=== PATIENT | female | born 1955 | race American Indian/Alaskan Native ===

== ENCOUNTER 2017-01-02 07:09 | Outpatient (CLI) | payer BC ==
--- NOTE | 2017-01-02 07:36 | Mammography Report ---
Bilateral mammogram: Compared to 01/02/16. CAD study utilized. Findings: Predominance adipose tissue bilaterally. Benign calcifications and benign density. Benign axillary nodes. No microcalcification. Impression: Benign findings. Annual followup recommended. BI-RADS CATEGORY: 2 = Benign ACR BI-RADS MAMMOGRAPHIC CODES: 0 = Needs additional imaging evaluation; 1 = Negative; 2 = Benign; 3 = Probably benign; 4 = Suspicious; 5 = Malignant; 6 = Known biopsy-proven malignancy COMMENT: 1. Dense breast tissue, i.e., adenosis, fibrocystic changes, etc., may obscure an underlying neoplasm. 2. Approximately 10% of cancers are not detected with mammography. 3. A negative mammography report should not delay biopsy if a clinically suspicious mass is present. COMMENT: Patient follow-up letters are generated in [employer].
== END 2017-01-02 07:10 | disposition home or self-care (01) ==
LOC: MAMMO 07:09
PROVIDERS: ATTEND Obstetrics & Gynecology
DX: Z12.31 Encounter for screening mammogram for malignant neoplasm of breast (principal)
CPT/HCPCS: 77067; G0202

== ENCOUNTER 2017-02-03 06:17 | Day surgery (SDC) | payer BC ==
[2017-02-03] MEDS ORDERED: TOBRADEX ONE (06:20)
[2017-02-03] MEDS ORDERED: BSS ONE (06:21)
[2017-02-03] MEDS ORDERED: DUOVISC VISCOELASTIC INTRAOCULA ONE ×2 (07:00→08:28)
--- NOTE | 2017-02-03 07:05 | Anesthesia Consultation ---
Anesthesia Consult and Med Hx Date of service: 02/03/17 - Airway Anesthetic Teeth Evaluation: Partials ROM Head & Neck: Adequate Mental/Hyoid Distance: Adequate Mallampati Class: Class II Intubation Access Assessment: Probably Good - Pulmonary Exam CTA: Yes - Cardiac Exam Cardiac Exam: RRR - Pre-Operative Health Status ASA Pre-Surgery Classification: ASA2 Proposed Anesthetic Plan: MAC - Pulmonary Hx Smoking: Yes (FOR 15 YEARS,QUIT IN 2009) Hx Sleep Apnea: Yes (RESOLVED WITH WEIGHT LOSS) - Cardiovascular System Hx Hypertension: Yes (13 YEARS) - Central Nervous System Hx Neuromuscular Disorder: Yes (DDD, Stenosis, spondylolisthesis) Hx Psychiatric Problems: No - Endocrine Hx Thyroid Disease: Yes Hx Hypothyroidism: Yes - Other Systems Hx Alcohol Use: No Hx Substance Use: No Hx Cancer: No
--- NOTE | 2017-02-03 07:06 | Anesthesia Day of Surgery ---
Anesthesia Day of Surgery - Day of Surgery Patient Examined: Yes Patient H&P Reviewed: Yes Patient is NPO: Yes Beta Blockers: Yes (0500 today)
[2017-02-03] MEDS: NEOFRIN OS SCH ×3 (07:30→07:40)
[2017-02-03] MEDS: VIGAMOX OS SCH ×3 (07:30→07:40)
[2017-02-03] MEDS: MYDRIACYL OS SCH ×3 (07:30→07:40)
[2017-02-03] MEDS: CYCLOGYL OS SCH ×3 (07:30→07:40)
[2017-02-03] MEDS ORDERED: SUBLIMAZE ONE (07:44)
[2017-02-03] MEDS ORDERED: VERSED ONE (07:46)
[2017-02-03] MEDS ORDERED: BSS OD ONE (08:25)
[2017-02-03] MEDS ORDERED: BSS PLUS IO ONE (08:26)
[2017-02-03] MEDS ORDERED: XYLOCAINE MPF 2% INFILTRATI ONE (08:27)
[2017-02-03] MEDS ORDERED: VISCOAT IO ONE (08:42)
[2017-02-03] MEDS ORDERED: WATER FOR IRRIG STERILE IR ONE (09:23)
[2017-02-03] MEDS ORDERED: TOBRADEX OD ONE (09:23)
[2017-02-03] MEDS ORDERED: TYLENOL PO ONE (10:30)
[2017-02-03] MEDS ORDERED: DIAMOX PO ONE (10:30)
[2017-02-03 10:31] VITALS: BP 114/51
--- NOTE | 2017-02-03 10:42 | Operative Report ---
PREOPERATIVE DIAGNOSIS: Cataract, right eye. PROCEDURE: Cataract extraction, anterior vitrectomy, right eye. ANESTHESIA: MAC. DESCRIPTION OF PROCEDURE: After informed consent was obtained, the patient was brought into the operating room, tetracaine eyedrops were placed in the eye. A temporal clear corneal incision was made using the keratome blade. Viscoat was instilled in the anterior chamber. A capsulorrhexis capsulotomy was performed using Utrata forceps and a cystotome needle. Hydrodissection was applied in 4 quadrants using BSS on a 30-gauge cannula. The nucleus was then emulsified and removed using the phacoemulsification handpiece. Following removal of the nucleus, it became apparent that there was a large posterior capsular rent with vitreous herniating through. Visibility was extremely poor due to previous RK incisions and anterior vitrectomy was performed. Then, an MA60 implant was attempted to be placed into the sulcus; however, following insertion of the MA60, it became apparent that the haptic was severed off and so the MA60 implant was then removed along with the severed haptic. At this point, there was some anterior chamber hemorrhage and poor visibility on the cornea. The wound was checked to be clear of vitreous. The decision was made to allow the blood and corneal swelling to resolve before attempted placement of a ciliary sulcus based implant could be done. The patient tolerated the procedure well and was sent back to the recovery room in stable condition. Prior to this, the eye was patched with TobraDex ointment. JOB# [id number] ALESHA/[place]
--- NOTE | 2017-02-03 11:41 | Discharge Summary ---
HOSPITAL COURSE: This is a 61-year-old black female who underwent cataract extraction in the right eye with an anterior vitrectomy. She tolerated the procedure well. She was sent back to the recovery room in stable condition. She is to see us in the morning, after which she will be sent to a retina specialist She is to use Pred Forte 4 times a day, Besivance 4 times a day and Prolensa once a day. JOB# [id number] ALESHA/[place]
== END 2017-02-03 10:20 | disposition home or self-care (01) ==
LOC: OR 06:17
PROVIDERS: ATTEND Specialist
DX: H26.9 Unspecified cataract (principal); K21.9 Gastro-esophageal reflux disease without esophagitis; I10 Essential (primary) hypertension; E11.9 Type 2 diabetes mellitus without complications; E03.9 Hypothyroidism, unspecified; M48.00 Spinal stenosis, site unspecified; Z90.89 Acquired absence of other organs; Z87.891 Personal history of nicotine dependence; Z79.899 Other long term (current) drug therapy; Z94.7 Corneal transplant status
CPT/HCPCS: 66850; 67005; 82962; J2250; J3010

== ENCOUNTER 2017-10-10 06:06 | Outpatient (CLI) | payer BC ==
[2017-10-10 11:08] LABS: Creatinine,Urine 21.4 mg/dL (0.1-20.0)
[2017-10-10 11:18] LABS: Alanine Aminotransferase 10 units/L (7-56); Albumin 3.8 g/dL (3.9-5); BUN/Creatinine Ratio 24; Blood Urea Nitrogen 17 mg/dL (7-17); Calcium 8.4 mg/dL (8.4-10.2); Chol/HDL Ratio 2.04 %; HDL Cholesterol 73 mg/dL (40-59); Hemolysis Index 5; LDL Cholesterol,Direct 79 mg/dL (50-130)
== END 2017-10-10 06:07 | disposition home or self-care (01) ==
LOC: LAB 06:06
PROVIDERS: ATTEND Family Medicine
DX: Z00.01 Encounter for general adult medical examination with abnormal findings (principal); R79.89 Other specified abnormal findings of blood chemistry; E78.00 Pure hypercholesterolemia, unspecified; I10 Essential (primary) hypertension; E03.9 Hypothyroidism, unspecified; K21.9 Gastro-esophageal reflux disease without esophagitis; M19.90 Unspecified osteoarthritis, unspecified site; Z88.6 Allergy status to analgesic agent; Z87.891 Personal history of nicotine dependence
CPT/HCPCS: 36415; 80053; 80061; 82043; 82570; 83036

== ENCOUNTER 2018-04-13 06:52 | Outpatient (CLI) | payer BC ==
[2018-04-13 15:50] LABS: Creatinine,Urine 127.9 mg/dL (0.1-20.0)
[2018-04-13 15:51] LABS: Microalbumin/Creatinine Ratio 9.3 ug/mg
== END 2018-04-13 06:53 | disposition home or self-care (01) ==
LOC: LAB 06:52
PROVIDERS: ATTEND Family Medicine
DX: E11.42 Type 2 diabetes mellitus with diabetic polyneuropathy (principal); I10 Essential (primary) hypertension; E89.0 Postprocedural hypothyroidism
CPT/HCPCS: 36415; 82043; 83036; 84443

== ENCOUNTER 2018-08-11 10:17 | Outpatient (CLI) | payer BC | END 2018-08-11 10:18 | disposition home or self-care (01) | LOC: LAB 10:17 | PROVIDERS: ATTEND Family Medicine | DX: E89.0 Postprocedural hypothyroidism (principal); I10 Essential (primary) hypertension; E78.00 Pure hypercholesterolemia, unspecified; K21.9 Gastro-esophageal reflux disease without esophagitis; E03.9 Hypothyroidism, unspecified; Z87.891 Personal history of nicotine dependence | CPT/HCPCS: 36415; 84443 ==

== ENCOUNTER 2018-08-18 06:52 | Outpatient (CLI) | payer BC ==
--- NOTE | 2018-08-18 09:22 | Cat Scan Report ---
Limited CT scan of chest without contrast: Study performed for calcium score. Findings: No mediastinal mass or adenopathy. Limited study reveals normal lung parenchyma. No consolidation or mass. Impression: No acute lung changes.
--- NOTE | 2018-08-18 12:04 | Ultrasound Report ---
PROCEDURE: US AORTA SCAN (AAA). TECHNIQUE: Ultrasound of the abdominal aorta. Duplex Doppler evaluation performed of aorta, mesenter ic and renal arteries. HISTORY: r42 DIZZINESS/I10 MILD HTN/R06.00 DYSPNEA/E11.9 PALPITATIONS COMPARISON: None FINDINGS: The proximal, mid and distal aortic diameters are 2.1, 1.9 and 1.8 cm respectively. There is no abdom inal aortic aneurysm. Bifurcation and visualized common iliac arteries are normal caliber. Celiac and SMA origins, renal arteries are patent. Mesenteric and renal arterial flow velocities are acceptable. IMPRESSION: No abdominal aortic aneurysm. No stenosis or aneurysm involving branch arteries. This document is electronically signed by Isela Olivas MD., August 18 2018 12:02:21 PM ET
== END 2018-08-18 06:53 | disposition home or self-care (01) ==
LOC: VAS 06:52 → EDSTATUS 08:30
PROVIDERS: ATTEND Internal Medicine
DX: R42 Dizziness and giddiness (principal); I10 Essential (primary) hypertension; R06.00 Dyspnea, unspecified; E11.9 Type 2 diabetes mellitus without complications; R00.2 Palpitations; E78.00 Pure hypercholesterolemia, unspecified; K21.9 Gastro-esophageal reflux disease without esophagitis; E03.9 Hypothyroidism, unspecified; Z87.891 Personal history of nicotine dependence; V81 Occupant of railway train or railway vehicle injured in transport accident
CPT/HCPCS: 75571; 76775

== ENCOUNTER 2018-08-23 07:58 | Outpatient (CLI) | payer BC ==
--- NOTE | 2018-08-27 10:19 | Treadmill Report ---
MYOCARDIAL PERFUSION IMAGING NUCLEAR REPORT INDICATION FOR PROCEDURE: Nuclear myocardial perfusion imaging with gated study was performed. One-day protocol was performed with resting images followed by stress images using technetium-pyrophosphate sestamibi. Post-stress gated study was performed. Nuclear images were reviewed and this showed normal perfusion during post-stress and during rest. Normal left ventricular size was noted with normal left ventricular systolic motion. Ejection fraction was calculated to be 66% post-stress. Transient ischemic dilation was found to be 0.92. FINAL IMPRESSION: 1. Normal perfusion noted. 2. Normal left ventricular systolic function with calculated ejection fraction of 66% noted. 3. This was found to be low risk study. [facility]# [id number] JIM/[place]
== END 2018-08-23 07:59 | disposition home or self-care (01) ==
LOC: CARD 07:58
PROVIDERS: ATTEND Internal Medicine
DX: R06.00 Dyspnea, unspecified (principal); R00.2 Palpitations; E11.9 Type 2 diabetes mellitus without complications; I10 Essential (primary) hypertension; R42 Dizziness and giddiness; K22.2 Esophageal obstruction; E03.9 Hypothyroidism, unspecified; E78.00 Pure hypercholesterolemia, unspecified; K21.9 Gastro-esophageal reflux disease without esophagitis; Z87.891 Personal history of nicotine dependence
CPT/HCPCS: 78452; 93017; A9502

== ENCOUNTER 2018-08-24 06:06 | Outpatient (CLI) | payer BC | END 2018-08-24 06:07 | disposition home or self-care (01) | LOC: ECHO 06:06 | PROVIDERS: ATTEND Internal Medicine | DX: I08.2 Rheumatic disorders of both aortic and tricuspid valves (principal); E11.9 Type 2 diabetes mellitus without complications; I10 Essential (primary) hypertension; E78.00 Pure hypercholesterolemia, unspecified; K21.9 Gastro-esophageal reflux disease without esophagitis; E03.9 Hypothyroidism, unspecified | CPT/HCPCS: 93306 ==

== ENCOUNTER 2018-11-05 07:34 | Outpatient (CLI) | payer BC ==
[2018-11-05 10:40] LABS: Alanine Aminotransferase 14 units/L (7-56); BUN/Creatinine Ratio 13; Blood Urea Nitrogen 10 mg/dL (7-17); Hemolysis Index 10; LDL Cholesterol,Direct 65 mg/dL (50-130)
[2018-11-05 11:27] LABS: Chol/HDL Ratio 1.88 %; HDL Cholesterol 69 mg/dL (40-59)
== END 2018-11-05 07:35 | disposition home or self-care (01) ==
LOC: LAB 07:34
PROVIDERS: ATTEND Internal Medicine
DX: E11.9 Type 2 diabetes mellitus without complications (principal); I06.9 Rheumatic aortic valve disease, unspecified; E78.00 Pure hypercholesterolemia, unspecified; K21.9 Gastro-esophageal reflux disease without esophagitis; E03.9 Hypothyroidism, unspecified
CPT/HCPCS: 36415; 80053; 80061; 84439; 84443

== ENCOUNTER 2019-01-12 07:42 | Outpatient (CLI) | payer BC ==
[2019-01-12 10:10] LABS: Alanine Aminotransferase 12 units/L (7-56); Albumin 4.2 g/dL (3.9-5); BUN/Creatinine Ratio 19; Blood Urea Nitrogen 13 mg/dL (7-17); Calcium 8.7 mg/dL (8.4-10.2); Chol/HDL Ratio 2.03 %; HDL Cholesterol 65 mg/dL (40-59); Hemolysis Index 2; LDL Cholesterol,Direct 66 mg/dL (50-130)
== END 2019-01-12 07:43 | disposition home or self-care (01) ==
LOC: LAB 07:42
PROVIDERS: ATTEND Internal Medicine
DX: E78.00 Pure hypercholesterolemia, unspecified (principal); K21.9 Gastro-esophageal reflux disease without esophagitis; E03.9 Hypothyroidism, unspecified; M19.90 Unspecified osteoarthritis, unspecified site; Z87.891 Personal history of nicotine dependence
CPT/HCPCS: 36415; 80053; 80061

== ENCOUNTER 2019-01-21 06:57 | Outpatient (CLI) | payer BC ==
--- NOTE | 2019-01-21 14:14 | Vascular Lab Report ---
BILATERAL CAROTID DOPPLER ULTRASOUND INDICATION : R42.DIZZINESS/E11.9DIABETES/R06.00DYSPNEA/K22.2ESOPHAGEAL STRICTU TECHNIQUE: Grayscale and color Doppler imaging performed through the neck. COMPARISON: None FINDINGS: Right: There is no significant atherosclerotic disease. Peak systolic velocity in the CCA is 75 cm/ s with end-diastolic velocity of 28 cm/s. Peak systolic velocity in the proximal ICA is 84 cm/s with end-diastolic velocity of 30 cm/s. ICA to CCA ratio is less than 2. There is antegrade flow in the E CA and the vertebral artery. Left: There is no significant atherosclerotic disease. Peak systolic velocity in the CCA is 69 cm/s w ith end-diastolic velocity of 15 cm/s. Peak systolic velocity in the proximal ICA is 106 cm/s with en d-diastolic velocity of 32 cm/s. ICA to CCA ratio is less than 2. There is antegrade flow in the ECA and the vertebral artery. IMPRESSION: No hemodynamically significant stenosis by NASCET criteria. There is less than 50% lumina l narrowing throughout both carotid systems by Doppler velocities. Signer Name: Tha Garrison Jr, MD Signed: 01/21/2019 2:10 PM Workstation Name: [id number]
== END 2019-01-21 06:58 | disposition home or self-care (01) ==
LOC: VAS 06:57
PROVIDERS: ATTEND Internal Medicine
DX: I65.23 Occlusion and stenosis of bilateral carotid arteries (principal); K22.2 Esophageal obstruction; I10 Essential (primary) hypertension; E11.9 Type 2 diabetes mellitus without complications; Z87.891 Personal history of nicotine dependence
CPT/HCPCS: 93880

== ENCOUNTER 2019-01-28 05:58 | Outpatient (CLI) | payer BC ==
--- NOTE | 2019-01-31 12:48 | Mammography Report ---
DIGITAL SCREENING MAMMOGRAM WITH CAD, 01/28/2019 INDICATION: Routine screening mammography. TECHNIQUE: Digital bilateral 2D mammography was obtained in the craniocaudal and mediolateral obliq ue projections. This examination was interpreted with the benefit of Computer-Aided Detection analysi s. COMPARISON: 01/22/2018 and mammograms going back to 2010 FINDINGS: Breast Density: There are scattered areas of fibroglandular density. A right focal asymmetry requires additional imaging. No architectural distortion or suspicious calcif ications. There is no evidence of dominant mass, suspicious calcifications or architectural distortio n in the left breast. IMPRESSION: Right asymmetry requiring additional imaging. Recommend recall for right lateral and righ t MLO and CC spot magnification views and right breast ultrasound if needed. Follow up recommendation: Special View: Mag Category 0: Incomplete. Needs additional imaging evaluation and/or prior mammograms for comparison. A "normal" or negative report should not discourage follow up or biopsy of a clinically significant f inding. A written summary of these findings will be mailed to the patient. The patient will be entered into a mammography reporting system which will generate a reminder letter for the patient's next appointmen t at the appropriate interval. The [employer] recommends yearly mammograms starting at age 40 and continuing as l sebastián as a woman is in good health. Breast MRI is recommended for women with an approximate 20-25% or greater lifetime risk of breast cancer, including women with a strong family history of breast or ova krystyna cancer or who have been treated for Hodgkin's disease. Signer Name: Ryan Augustin MD Signed: 01/31/2019 12:44 PM Workstation Name: [id number]
== END 2019-01-28 05:59 | disposition home or self-care (01) ==
LOC: MAMMO 05:58
PROVIDERS: ATTEND Obstetrics & Gynecology
DX: Z12.31 Encounter for screening mammogram for malignant neoplasm of breast (principal); Z88.5 Allergy status to narcotic agent
CPT/HCPCS: 77067

== ENCOUNTER 2019-02-15 07:02 | Outpatient (CLI) | payer BC ==
--- NOTE | 2019-02-15 11:41 | Mammography Report ---
RIGHT DIGITAL DIAGNOSTIC MAMMOGRAM WITH CAD 02/15/2019 RIGHT LIMITED BREAST ULTRASOUND INDICATION: Recall to evaluate asymmetry. ABN MAMMO TECHNIQUE: Digital right mammographic imaging was performed. Magnification views were obtained. This examination was interpreted with the benefit of Computer-Aided Detection (CAD) analysis. COMPARISON: 01/28/2019 FINDINGS: Breast Density: The breasts are almost entirely fatty. MAMMOGRAPHIC FINDINGS: Lateral and spot magnification MLO and CC views were performed and are negativ e. Satisfactory effacement of asymmetry on the spot images. ULTRASOUND FINDINGS: Targeted ultrasound evaluation was performed of the area of interest. Ultrasou nd of the upper right breast was performed and demonstrated normal structures with no mass or suspici ous shadowing. IMPRESSION: Negative mammogram and negative targeted right breast ultrasound. The mammographic asymme try appears to be an island of normal fibroglandular structures which disappear with spot compression . Follow up recommendation: Routine yearly BI-RADS Category 1: Negative. A "normal" or negative report should not discourage follow up or biopsy of a clinically significant f inding. A written summary of these findings will be mailed to the patient. The patient will be entered into a mammography reporting system which will generate a reminder letter for the patient's next appointmen t at the appropriate interval. According to the [employer], yearly mammograms are recommended starting at age 40 and continuing as long as a woman is in good health. Breast MRI is recommended for women with an arin roximately 20-25% or greater lifetime risk of breast cancer, including women with a strong family his tory of breast or ovarian cancer and women who have been treated for Hodgkin's disease. Signer Name: Ryan Augustin MD Signed: 02/15/2019 11:37 AM Workstation Name: [id number]
== END 2019-02-15 07:03 | disposition home or self-care (01) ==
LOC: MAMMO 07:02
PROVIDERS: ATTEND Obstetrics & Gynecology
DX: R92.8 Other abnormal and inconclusive findings on diagnostic imaging of breast (principal)

== ENCOUNTER 2019-04-01 11:07 | Outpatient (CLI) | payer BC ==
[2019-04-01 11:46] LABS: Microalbumin/Creatinine Ratio 30.7 ug/mg
[2019-04-01 11:51] LABS: Alanine Aminotransferase 9 units/L (7-56); BUN/Creatinine Ratio 14; Blood Urea Nitrogen 10 mg/dL (7-17); Calcium 8.7 mg/dL (8.4-10.2); Hemolysis Index 4; LDL Cholesterol,Direct 58 mg/dL (50-130)
[2019-04-01 12:34] LABS: Chol/HDL Ratio 2.14 %; HDL Cholesterol 56 mg/dL (40-59)
== END 2019-04-01 11:08 | disposition home or self-care (01) ==
LOC: LAB 11:07
PROVIDERS: ATTEND Family Medicine
DX: E11.42 Type 2 diabetes mellitus with diabetic polyneuropathy (principal); E78.2 Mixed hyperlipidemia; I10 Essential (primary) hypertension; E89.0 Postprocedural hypothyroidism
CPT/HCPCS: 36415; 80048; 80061; 82043; 84443; 84450; 84460

== ENCOUNTER 2019-07-28 08:00 | Inpatient (IN) | payer BC ==
[2019-07-25 10:28] LABS: Basophils # (Auto) 0.1 K/mm3 (0.0-0.1); Basophils % (Auto) 1.2 % (0.0-1.8); Eosinophils # (Auto) 0.1 K/mm3 (0.0-0.4); Eosinophils % (Auto) 1.2 % (0.0-4.3); Hematocrit 41.3 % (30.3-42.9); Lymphocytes # (Auto) 1.5 K/mm3 (1.2-5.4); Lymphocytes % (Auto) 30.5 % (13.4-35.0); Mean Corpuscular HGB Conc 34 % (30-34); Mean Corpuscular Volume 80 fl (79-97); Monocytes # (Auto) 0.3 K/mm3 (0.0-0.8); Monocytes % (Auto) 5.2 % (0.0-7.3); Platelet Count 292 K/mm3 (140-440); Red Blood Count 5.19 M/mm3 (3.65-5.03); Red Cell Distribution Width 15.3 % (13.2-15.2)
--- NOTE | 2019-07-25 10:37 | Anesthesia Consultation ---
Anesthesia Consult and Med Hx Date of service: 07/25/19 - Airway Anesthetic Teeth Evaluation: Caps, Partials (lower) ROM Head & Neck: Adequate Mental/Hyoid Distance: Adequate Mallampati Class: Class III Intubation Access Assessment: Possibly Difficult - Pulmonary Exam CTA: Yes - Cardiac Exam Cardiac Exam: RRR - Pre-Operative Health Status ASA Pre-Surgery Classification: ASA2 Proposed Anesthetic Plan: General Nerve Block: TAP - Pulmonary Hx Smoking: Yes (former) Hx Respiratory Symptoms: No Hx Sleep Apnea: Yes (no CPAP) - Cardiovascular System Hx Hypertension: Yes Hx Heart Attack/AMI: No Hx Percutaneous Transluminal Coronary Angioplasty (PTCA): No Hx Cardia Arrhythmia: Yes (hx brief run SVT on holter monitor; none on most recent 01/2019) Hx Pacemaker: No Hx Internal Defibrillator: No - Central Nervous System CVA: No Hx Back Pain: Yes - Gastrointestinal Hx Gastroesophageal Reflux Disease: Yes (w/ esophageal stricture) - Endocrine Hx Renal Disease: No Hx Liver Disease: No Hx Non-Insulin Dependent Diabetes: Yes Hx Hypothyroidism: Yes - Hematic Hx Anemia: No - Other Systems Hx Obesity: No - Additional Comments Anesthesia Medical History Comments: TTE 08/2018: normal EF, no significant valve abnormalities. Nuc perf study 08/2018: normal. EKG 06/2019: NSR. No hx anesthetic complications.
[2019-07-25 10:43] LABS: BUN/Creatinine Ratio 17; Blood Urea Nitrogen 12 mg/dL (7-17); Calcium 9.2 mg/dL (8.4-10.2); Hemolysis Index 9
--- NOTE | 2019-07-26 17:04 | History and Physical Report ---
History of Present Illness Date of examination: 07/22/19 Chief complaint: Recurret LISA 3 History of present illness: Past History : 4 Term Births: 5 Living Children: 5 Para: 5 # 1 Comments: [id number] RESIDENT DOCTOR History Operations: esophageal dilation (2015) partial thyroidectomy (1991) LEEP 2013 Right eye (01/2017) with complications Left eye (2017) Colon polypectomy with each colonoscopy Abnormal PAP: positive Infection History HIV Risk Eval: no Hx of STD: HSV Active Medications (reviewed today): COQ-10 CAPSULE (COENZYME Q10 CAPS) METFORMIN HCL ER 500 MG ORAL TABLET EXTENDED RELEASE 24 HOUR (METFORMIN HCL) LOSARTAN POTASSIUM-HCTZ 100-25 MG ORAL TABLET (LOSARTAN POTASSIUM-HCTZ) HYDRALAZINE HCL 50 MG ORAL TABLET (HYDRALAZINE HCL) ATORVASTATIN CALCIUM 40 MG ORAL TABLET (ATORVASTATIN CALCIUM) ASPIR-81 81 MG ORAL TABLET DELAYED RELEASE (ASPIRIN) ATENOLOL 25 MG ORAL TABLET (ATENOLOL) LEVOTHYROXINE SODIUM 112 MCG ORAL TABLET (LEVOTHYROXINE SODIUM) Current Allergies (reviewed today): CODEINE (Critical) Past Medical History: Reviewed history from 01/20/2019 and no changes required: G E R D Hyperlipidemia Hypertension Hypothyroidism esophageal stricture herniated discs: lumbar/sacral carpal tunnel syndrome Colon polyps LISA 2-3 (2013) Past Surgical History: Reviewed history from 01/20/2019 and no changes required: esophageal dilation (2015) partial thyroidectomy (1991) LEEP 2013 Right eye (01/2017) with complications Left eye (2017) Colon polypectomy with each colonoscopy Family History Summary: Reviewed history Last on 01/20/2019 and no changes required:07/26/2019 Aunt - Has Family History Breast Cancer - paternal - Entered On: 12/15/2017 Other Family Member - Has No Family History of Uterine Cancer - Entered On: 12/15/2017 Other Family Member - Has No Family History of Small Bowel Cancer - Entered On: 12/15/2017 Other Family Member - Has No Family History of Stomach Cancer - Entered On: 12/15/2017 Other Family Member - Has No Family History of Pancreatic Cancer - Entered On: 12/15/2017 Other Family Member - Has No Family History of Ovarvian Cancer - Entered On: 12/15/2017 Other Family Member - Has No Family History of Kidney/Urinary Tract Cancer - Entered On: 12/15/2017 Other Family Member - Has No Family History of Spontaneous DVT-PE - Entered On: 12/15/2017 Other Family Member - Has No Family History of Brain Cancer - Entered On: 12/15/2017 Other Family Member - Has No Family History of Biliary Tract Cancer - Entered On: 12/15/2017 Uncle - Has Family History of Lung Cancer - Maternal - Entered On: 07/10/2016 Aunt - Has Family History of Colon Cancer - maternal - Entered On: 11/22/2014 PGM - Has Family History Breast Cancer - dx'd age 50's - Entered On: 11/22/2014 General Comments - FH: Family History Breast Cancer paternal aunt Age 45 Mother head/neck cancer No Family History of Ovarvian Cancer No Family History of DVT/PE on OCP Social History: Reviewed history from 12/16/2017 and no changes required: Patient is single Smoking History: Patient currently smokes every day. Patient has been counseled to quit. Risk Factors: Smoked Tobacco Use: Current every day smoker Smokeless Tobacco Use: Never Passive smoke exposure: no Drug use: no HIV high-risk behavior: no Alcohol use: yes Exercise: yes Seatbelt use: 100 % Mammogram History: Date of Last Mammogram: 02/15/2019 PAP Smear History: Date of Last PAP Smear: 01/20/2019 Previous Tobacco Use: Signed On - 01/20/2019 Smoked Tobacco Use: Current every day smoker Cigarettes: Yes Year started: 2009 Smokeless Tobacco Use: Never Counseled to quit/cut down: yes Passive smoke exposure: no Drug use: no HIV high-risk behavior: no Caffeine use: 3 drinks per day Previous Alcohol Use: Signed On - 01/20/2019 Alcohol use: yes Type: occ Drinks per day: social Exercise: yes Times per week: 4 Seatbelt use: 100 % Colonoscopy History: Date of Last Colonoscopy: 03/04/2016 Mammogram History: Date of Last Mammogram: 02/15/2019 PAP Smear History: Date of Last PAP Smear: 01/20/2019 Review of Systems General Denies fever, chills, sweats, anorexia, fatigue, weakness, malaise, weight loss and sleep disorder. Denies vaginal discharge, incontinence, dysuria, hematuria, urinary frequency, amenorrhea, menorrhagia, abnormal vaginal bleeding, pelvic pain, genital sores, decreased libido, painful periods, painful sex, urinary urgency, hot flashes, vaginal dryness, vaginal itching and vaginal odor. CV Denies chest pains, palpitations, syncope, dyspnea on exertion, orthopnea, PND and peripheral edema. Resp Denies cough, dyspnea at rest, excessive sputum, hemoptysis, wheezing and pleurisy. GI Denies nausea, vomiting, diarrhea, constipation, change in bowel habits, abdominal pain, melena, hematochezia, jaundice, gas/bloating, indigestion/heartburn, dysphagia and odynophagia. Endo Denies cold intolerance, heat intolerance, polydipsia, polyphagia, polyuria and unusual weight change. Breast Denies left breast lump, right breast lump, nipple discharge, bloody discharge from nipple, breast pain, abnormal mammogram and breast enlargement. MS Denies back pain, joint pain, joint swelling, muscle cramps, muscle weakness, stiffness, arthritis, sciatica, restless legs, leg pain at night and leg pain with exertion. Derm Denies rash, itching, dryness and suspicious lesions. Neuro Denies paralysis, paresthesias, headache, seizures, tremors, vertigo, transient blindness, frequent falls, frequent headaches and difficulty walking. Psych Denies depression, anxiety, irritability and mood swings. Eyes Denies blurring, diplopia, irritation, discharge, vision loss, eye pain and photophobia. ENT Denies earache, ear discharge, tinnitus, decreased hearing, nasal congestion, nosebleeds, sore throat and hoarseness. Allergy Denies urticaria, allergic rash, hay fever and recurrent infections. Heme Denies abnormal bruising, bleeding and enlarged lymph nodes. 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 Discussed with patient various medical, surgical and radiological therapies common for treatment including, but not rincon ited to, hysterectomy and contninued consertive management with colposcopy and LEEP. She declines a second opinion with a gynecologic oncologist. Discussed risks and benefits of laparotomy, laparoscopy, vaginal and robotic assisted approaches for hysterectomies. Patient desires definitive treatment in the form of robot assisted laparoscopic total hysterectomy. The risks and alternatives for this surgery were reviewed with the patient. She was informed of the risks of the surgery including, but not limited to, pain, infection, bleeding possibly heavy enough to require a blood transfusion with associated risks of infections (hepatitis and HIV) and transfusion reactions, possible damage to bowel, bladder or ureter(s). Patient understands that this surgery with make her sterile. Indications to abort a robotic/laparoscopic procedure and perform an open procedure were explained. Patient advised the small risks of spreading of malignancy if morcellation is required during the surgery patient understands and approves performing if necessary. Questions answered. Consent reviewed and signed The patient was instructed/informed the following: The normal length of hospital stay for this procedure. Nothing to eat or drink after midnight the evening prior to surgery. Clear liquids the day before surgery. Pre-op instruction sheets given. Wound care instructions given. She desires to proceed with COVID-19 testing. She was instructed to stay home with limited visitors after testing. Medications Added to Medication List This Visit: 1) Coq-10 Capsule (Coenzyme q10 caps) 2) Metformin Hcl Er 500 Mg Oral Tablet Extended Release 24 Hour (Metformin hcl) 3) Hydralazine Hcl 50 Mg Oral Tablet (Hydralazine hcl) 4) Atorvastatin Calcium 40 Mg Oral Tablet (Atorvastatin calcium) 5) Levothyroxine Sodium 112 Mcg Oral Tablet (Levothyroxine sodium) Patient Instructions: 1) Stop ASA and COQ immediately Medications and Allergies Allergies Allergy/AdvReac Type Severity Reaction Status Date / Time codeine AdvReac Intermediate HIVES,NAUSE Verified 07/20/19 14:06 A,ITCHING Home Medications Medication Instructions Recorded Confirmed Last Taken Type Aspirin [Baby Aspirin] 1 tab PO DAILY 07/11/13 07/25/19 02/03/17 04:00 History Levothyroxine [Synthroid] 112 mcg PO DAILY 07/11/13 07/25/19 02/03/17 04:00 History atenoloL [Tenormin] 1 tab PO BID 07/11/13 07/25/19 02/03/17 04:00 History hydrALAZINE [Apresoline TAB] 2 tab PO TID 07/11/13 07/25/19 02/02/17 04:00 History AtorvaSTATin [Lipitor] 40 mg PO QHS 02/02/17 07/25/19 02/02/17 History Losartan/Hydrochlorothiazide 1 tab PO DAILY 02/02/17 07/25/19 02/02/17 History [Losartan-Hctz 100-25 mg Tab] Metformin HCl 500 mg PO DAILY 02/02/17 07/25/19 02/02/17 History Ubidecarenone [Coq-10] 400 mg PO DAILY 07/25/19 07/25/19 Unknown History Active Meds: Active Medications Celecoxib (Celebrex) 200 mg PO PREOP NR Stop: 07/28/19 18:00 Fentanyl (Sublimaze) 100 mcg IV ONCE PRN PRN Reason: sedation for nerve block Stop: 07/28/19 20:00 Gabapentin (Gabapentin) 600 mg PO PREOP NR Stop: 07/28/19 18:00 Lactated Ringer's (Lactated Ringers) 1,000 mls @ 100 mls/hr IV DIRECT RADHA Stop: 07/28/19 23:59 Cefazolin Sodium (Ancef/Sterile Water 2 Gm/20 Ml) 2 gm in 20 mls @ 80 mls/hr IV PREOP NR; Protocol Magnesium Oxide (Mag-Ox) 400 mg PO PREOP RADHA Stop: 07/28/19 18:00 Midazolam HCl (Versed) 2 mg IV PREOP NR Stop: 07/28/19 23:00 Exam Vital Signs Temp Pulse Resp BP Pulse Ox 98.8 F 70 20 126/72 98 07/25/19 10:00 07/25/19 10:00 07/25/19 10:00 07/25/19 10:00 07/25/19 10:00 Results - Labs 07/25/19 10:05 07/25/19 09:30 Assessment and Plan - Patient Problems (1) 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
--- NOTE | 2019-07-28 07:35 | Anesthesia Day of Surgery ---
Anesthesia Day of Surgery - Day of Surgery Patient Examined: Yes Patient H&P Reviewed: Yes Patient is NPO: Yes
[~2019-07-28 08:00] MED LIST: BUPIVACAINE-EPINEPHRINE/PF 0.25%-1:200,000 (30 ML) VIAL INFILTRATI ONE; CALCIUM CHLORIDE 1,000 MG/10 ML SYRINGE IV ONE; CELECOXIB 200 MG CAP PO NR; GABAPENTIN 300 MG CAP PO NR; HYDROmorphone 1 MG/1 ML INJ IV PRN; LACTATED RINGERS 1,000 ML IV SCH; LIDOCAINE MPF (2%) 20 MG/1 ML VIAL 5 ML ONE; MAGNESIUM OXIDE 400 MG TAB PO SCH; MIDAZOLAM 2 MG/2 ML INJ IV NR; MIDAZOLAM 2 MG/2 ML INJ ONE; NEOMY 40 MG/POLYMYXIN B 200,000 UNITS/ML (GU) AMPULE IR ONE; ROCURONIUM 50 MG/5 ML INJ IV ONE; THROMBIN (RECOMBINANT) 5,000 UNIT VIAL TP ONE; ceFAZolin/Water 2 GM/20 ML 2 GM/20 ML SYRINGE IV NR; dexAMETHasone 4 MG/ML VIAL ONE; fentaNYL 100 MCG/2 ML INJ IV PRN; fentaNYL 100 MCG/2 ML INJ ONE; propofoL 200 MG/20 ML VIAL IV ONE
[2019-07-28] MEDS ORDERED: PHENYLEPHRINE/NS 1,000 MCG/10 ML SYRINGE (OR USE) IV ONE (08:01)
[2019-07-28] MEDS ORDERED: ONDANSETRON 4 MG/2 ML INJ ONE (08:05)
[2019-07-28] MEDS ORDERED: dexAMETHasone 20 MG/5 ML VIAL ONE (08:05)
[2019-07-28] MEDS ORDERED: NEOMY 40 MG/POLYMYXIN B 200,000 UNITS/ML (GU) AMPULE IR ONE (08:38)
[2019-07-28] MEDS ORDERED: SODIUM CHLORIDE 0.9% IRRIG SOLN 2000 ML IR ONE (08:39)
[2019-07-28] MEDS ORDERED: KETOROLAC 30 MG/1 ML INJ ONE (08:58)
[2019-07-28] MEDS ORDERED: GLYCOPYRROLATE 0.4 MG/2 ML INJ ONE (08:58)
[2019-07-28] MEDS ORDERED: NEOSTIGMINE 10MG/10 ML INJ MDV ONE (08:58)
[2019-07-28] MEDS ORDERED: LACTATED RINGERS 1,000 ML ONE (09:14)
--- NOTE | 2019-07-28 09:56 | Post Operative Note ---
Pre-op diagnosis: LISA 3 Post-op diagnosis: same Findings: Grossly normal Uterus, tubes, ovaries and appendix Procedure: RALTH with BSO Anesthesia: GETA Surgeon: PAPA [facility]SI[facility] (Asst: Elif Hendricks) Estimated blood loss: minimal Pathology: list (uterus,cervix, tubes and ovaries) Specimen disposition: to lab Condition: stable Disposition: PACU
[2019-07-28] MEDS ORDERED: HYDROCHLOROTHIAZIDE PO SCH (11:00)
[2019-07-28] MEDS ORDERED: LOSARTAN PO SCH (11:00)
[2019-07-28] MEDS ORDERED: MORPHINE 2 MG/1 ML INJ IV PRN (11:00)
[2019-07-28] MEDS ORDERED: atenoloL 25 MG TAB PO SCH (11:00)
[2019-07-28] MEDS ORDERED: DEXTROSE 50% IN WATER (25GM) 50 ML SYRINGE IV PRN (11:00)
[2019-07-28] MEDS ORDERED: MORPHINE 4 MG/1 ML INJ IV PRN (11:00)
[2019-07-28] MEDS: INSULIN REGULAR, HUMAN 100 UNITS/1 ML SUB-Q SCH ×2 (12:06→17:31)
[2019-07-28] MEDS ORDERED: FAMOTIDINE 20 MG/2 ML INJ IV ONE (12:11)
[2019-07-28] MEDS: FAMOTIDINE 20 MG/2 ML INJ IV SCH ×2 (12:13→22:05)
[2019-07-28] MEDS: SODIUM CHLORIDE 0.9% 1000 ML 1,000 ML IV SCH ×2 (12:20→15:08)
[2019-07-28] MEDS: LOSARTAN 50 MG TAB PO SCH (13:13)
[2019-07-28] MEDS: hydroCHLOROthiazide 25 MG TAB PO SCH (13:14)
[2019-07-28] MEDS: ACETAMINOPHEN 325 MG TAB PO SCH ×2 (13:17→21:58)
[2019-07-28] MEDS ORDERED: ACETAMINOPHEN 325 MG TAB ONE (13:18)
--- NOTE | 2019-07-28 14:06 | Operative Report ---
Operative Report Operative Report: Date: 07/28/2019 Preoperative diagnosis: 1. Recurrent cervical intraepithelial neoplasia III 2. Body mass index of 29 kg/m Postoperative diagnosis: 1. Recurrent cervical intraepithelial neoplasia III 2. Body mass index of 29 kg/m Procedure: 1. Robotic-assisted laparoscopic total hysterectomy with bilateral salpingo-oophorectomy Surgeon: Margaret Montgomery MD Sas Sql Developer: Elif Hendricks Anesthesiologist: Dr. Kathia Rocha Anesthesia: General endotracheal anesthesia EBL: Approximately minimal Findings: EUA: Uterus palpated to approximately 8 weeks. Uterus was sounded to 7 cm. Grossly normal tubes and ovaries. Procedure: Patient was taken to the OR and placed in the supine position. General anesthesia was induced and an oral gastric tube was placed. Her neck and head were placed on foam support. Foam eye protection with goggles were secured in place. Then foam face protection was placed and secured. Foam shoulder pads were then positioned on her shoulders for Trendelenburg positioning. She was then placed in dorsolithotomy position. Exam under anesthesia as above. The abdomen and vagina were then prepped and draped in the usual sterile fashion. Timeout was performed. A Singh catheter was inserted into the bladder with drainage of clear yellow urine. The operative speculum was introduced into the vagina and the anterior lip of the cervix was grasped with single-toothed tenaculum. The uterus was sounded to 7 cm. The cervix was progressively dilated to allow the large V care uterine manipulator. The bulb of the manipulator was inflated and the speculum and tenaculum were removed. The cup of the manipulator was placed around the cervix and the blue occluder of the manipulator was properly positioned in the vagina and secured. A laparotomy sponge that was saturated with a solution of polymyxin and saline was placed in the vagina to ensure pneumoperitoneum. Sterile gloves were placed and attention was turned to the abdomen. A 10 mm midline vertical supraumbilical incision was made approximately 10 cm superior to the elevated fundus of the uterus. A 10-12 mm trocar with the laparoscope and camera attached was introduced through this incision under direct visualization. The abdomen was insufflated. No obvious bowel, bladder, ureteral, or major vascular injury was noted. The patient was then placed in steep Trendelenburg position and the following trochars were placed under direct visualization: 8 mm robotic trochars were placed through incisions made in the bilateral midclavicular lower abdominal region approximately 10 cm lateral to the midline incision, and a 5 mm trocar was placed through an incision made in the right lower lateral pelvis. The 10 mm laparoscope was then replaced by a 5 mm laparoscope that was placed through the 5 millimeter lateral trocar. The 12 mm trocar was then removed and the Yves Brink fascial closure device was placed through the incision and a 0 Vicryl was placed through the fascia. Once the suture was secured the 12 mm trocar was reintroduced. Once the trochars were in the appropriate positions, the da Azalea robot system was engaged. The EndoShears and bipolar device was placed through the 8 mm trochars and positioned then attention was turned to the console. The uterus was elevated and bilateral salpingectomy was performed. Each tube was removed through the 5 mm trocar and sent to pathology in separate containers. Then the utero-ovarian ligaments were clamped. cauterized and incised bilaterally using 30 W of energy. Then the round ligaments were clamped, cauterized and incised bilaterally. The anterior leaf of the broad ligament was elevated and with careful blunt and sharp dissection the bladder flap was created and dissected away from the lower uterine segment and cervix. The posterior leaf of the broad ligament was dissected away from the uterine vessels. The cup of the uterine manipulator was palpated both anteriorly and posteriorly. The bladder was further dissected away from the lower uterine segment. The uterine vessels were then clamped and cauterized bilaterally. Blanching of the uterus was then noted. Attention was again turned to the anterior lower uterine segment and the bladder was confirmed to be away from the operative field. Then attention was turned again to the posterior where the cup of the manipulator was palpated and a colpotomy was performed down to the cup. The incision was extended in the lateral position to the uterine vessels that were again clamped and cauterized and incised. Continuing along the cup of the manipulator in a circumferential manner the colpotomy was completed. The uterus and cervix were then removed through the vaginal incision. The pelvis was irrigated with warm normal saline. A moist laparotomy sponge was placed in the vagina to maintain pneumoperitoneum. The vagina cuff was reapproximated using V LOC 180 suture. Then a J stitch was performed to secure the suture. Again the pelvis was copiously irrigated with polymixin in warm normal saline. The laparotomy sponge was removed from the vagina. No obvious evidence of bowel, bladder, ureteral, or major vascular injury was noted. Once hemostasis was noted, platelet rich plasma was applied to the operative field to ensure hemostasis. Platelet poor plasma was applied to decrease formation of adhesions. Then the instruments were removed, the robot was disengaged. The 12 mm trocar was removed and the fascia was ligated with the 0 Vicryl suture that was placed at the beginning of the procedure. The patient was taken out of Trendelenburg position, the abdomen was desufflated, the remaining trochars were removed. Incisions were reapproximated using 4-0 Monocryl in a subcuticular manner. Surgiseal was placed over the other incisions. The vagina was then inspected, the cuff was palpated to be intact and no bleeding was noted and clear yellow urine was draining into the Singh bag from the bladder at the end of the procedure. Counts were correct 3. Patient was taken to recovery room in stable condition.
[2019-07-28] MEDS: hydrALAZINE 25 MG TAB PO SCH ×2 (14:16→20:52)
--- NOTE | 2019-07-28 15:21 | Post Anesthesia Evaluation ---
- Post Anesthesia Evaluation Patient Participated: Yes Airway Patent: Yes Stable Respiratory Function: Yes Nausea/Vomiting: No Temp > 96.8F: Yes Pain Manageable: Yes Adequeate Hydration: Yes Anesthesia Complications: No Other Comments: Report handoff from Dr. Rocha. No problems apparent. D/C to floor
[2019-07-28] MEDS ORDERED: PNEUMOCOCCAL 23 Valent 0.5 ML VIAL IM ONE (16:03)
[2019-07-28] MEDS: KETOROLAC 30 MG/1 ML INJ IV SCH (17:14)
[2019-07-28] MEDS: ceFAZolin/NS 1 GM/50 ML 1 GM/50 ML BAG IV SCH (17:15)
--- NOTE | 2019-07-28 18:58 | History and Physical Report ---
History of Present Illness Date of examination: 07/28/19 Date of admission: 07/28/19 09:40 Medications and Allergies Allergies Allergy/AdvReac Type Severity Reaction Status Date / Time codeine AdvReac Intermediate HIVES,NAUSE Verified 07/20/19 14:06 A,ITCHING Home Medications Medication Instructions Recorded Confirmed Last Taken Type Aspirin [Baby Aspirin] 1 tab PO DAILY 07/11/13 07/28/19 07/14/19 09:00 History Levothyroxine [Synthroid] 112 mcg PO DAILY 07/11/13 07/28/19 07/28/19 05:00 History atenoloL [Tenormin] 1 tab PO BID 07/11/13 07/28/19 07/28/19 05:00 History hydrALAZINE [Apresoline TAB] 2 tab PO TID 07/11/13 07/28/19 07/27/19 11:55 History AtorvaSTATin [Lipitor] 40 mg PO QHS 02/02/17 07/28/19 07/27/19 22:00 History Losartan/Hydrochlorothiazide 1 tab PO DAILY 02/02/17 07/28/19 07/27/19 14:00 History [Losartan-Hctz 100-25 mg Tab] Metformin HCl 500 mg PO DAILY 02/02/17 07/28/19 07/27/19 07:00 History Ubidecarenone [Coq-10] 400 mg PO DAILY 07/25/19 07/28/19 07/27/19 08:00 History Active Meds: Active Medications Acetaminophen (Tylenol) 650 mg PO Q8H [facility] Stop: 07/29/19 13:01 Last Admin: 07/28/19 13:17 Dose: 650 mg Documented by: Atenolol (Tenormin) 25 mg PO BID@0800,2000 [facility] Dextrose (D50w (25gm) Syringe) 50 ml IV Q30MIN PRN; Protocol PRN Reason: Hypoglycemia Famotidine (Pepcid) 20 mg IV BID [facility] Last Admin: 07/28/19 12:13 Dose: 20 mg Documented by: Hydralazine HCl (Apresoline) 50 mg PO TID [facility] Last Admin: 07/28/19 14:16 Dose: 50 mg Documented by: Hydrochlorothiazide (Hctz) 25 mg PO QDAY [facility] Last Admin: 05/14/20 13:14 Dose: 25 mg Documented by: Sodium Chloride (Nacl 0.9% 1000 Ml) 1,000 mls @ 125 mls/hr IV DIRECT [facility] Last Admin: 07/28/19 15:08 Dose: 125 mls/hr Documented by: Cefazolin Sodium (Ancef/Ns 1 Gm/50 Ml) 1 gm in 50 mls @ 100 mls/hr IV Q8H [facility]; Protocol Stop: 07/29/19 00:29 Last Admin: 07/28/19 17:15 Dose: 100 mls/hr Documented by: Insulin Human Regular (Humulin R) 0 units SUB-Q Q6HR [facility]; Protocol Last Admin: 07/28/19 17:31 Dose: Not Given Documented by: Ketorolac Tromethamine (Toradol) 30 mg IV Q8H [facility] Stop: 07/29/19 17:01 Last Admin: 07/28/19 17:14 Dose: 30 mg Documented by: Levothyroxine Sodium (Synthroid) 112 mcg PO DAILY@0600 [facility] Losartan Potassium (Cozaar) 100 mg PO QDAY [facility] Last Admin: 07/28/19 13:13 Dose: 100 mg Documented by: Morphine Sulfate (Morphine) 2 mg IV Q4H PRN PRN Reason: Pain, Moderate (4-6) Morphine Sulfate (Morphine) 4 mg IV Q4H PRN PRN Reason: Pain , Severe (7-10) Exam Vital Signs Temp Pulse Resp BP Pulse Ox 98.8 F 70 20 126/72 98 07/25/19 10:00 07/25/19 10:00 07/25/19 10:00 07/25/19 10:00 07/25/19 10:00 Results - Labs 07/25/19 10:05 07/25/19 09:30 Assessment and Plan Patient sleeping, easily aroused. Abd:+BS, incisions c/d/i. ~300mL clear yellow urine in bad over last 3.5hours. Informed to adhere to ordered diet. No questions at this time - Patient Problems (1) History of robot-assisted laparoscopic hysterectomy Current Visit: Yes Status: Acute (2) S/P bilateral salpingo-oophorectomy Current Visit: Yes Status: Acute (3) LISA III (cervical intraepithelial neoplasia grade III) with severe dysplasia Current Visit: No Status: Chronic (4) Hypertension Current Visit: No Status: Chronic Qualifiers: Hypertension type: essential hypertension Qualified Code(s): I10 - Essential (primary) hypertension (5) Diabetes Current Visit: No Status: Chronic (6) Hypothyroidism Current Visit: No Status: Chronic (7) Hyperlipidemia Current Visit: No Status: Chronic
[2019-07-28] MEDS: atenoloL 25 MG TAB PO SCH (20:40)
[2019-07-29] MEDS: hydrALAZINE 25 MG TAB PO SCH ×3 (00:51→16:38)
[2019-07-29] MEDS: KETOROLAC 30 MG/1 ML INJ IV SCH ×3 (00:51→19:15)
[2019-07-29] MEDS: INSULIN REGULAR, HUMAN 100 UNITS/1 ML SUB-Q SCH ×4 (00:52→18:37)
[2019-07-29] MEDS: ceFAZolin/NS 1 GM/50 ML 1 GM/50 ML BAG IV SCH (00:52)
[2019-07-29] MEDS: SODIUM CHLORIDE 0.9% 1000 ML 1,000 ML IV SCH (03:38)
[2019-07-29] MEDS: LEVOTHYROXINE 150 MCG TAB PO SCH (05:59)
[2019-07-29] MEDS: ACETAMINOPHEN 325 MG TAB PO SCH ×2 (05:59→16:37)
[2019-07-29 07:05] LABS: Hematocrit 34.5 % (30.3-42.9); Hemoglobin 11.4 gm/dl (10.1-14.3)
[2019-07-29] MEDS: FAMOTIDINE 20 MG/2 ML INJ IV SCH ×2 (09:19→22:11)
--- NOTE | 2019-07-29 09:19 | Progress Note ---
Assessment and Plan POD#1 doing well. Will observe for now d/t dizziness, UO appears adequate. Will INT IV, possible allow home this pm - Patient Problems (1) History of robot-assisted laparoscopic hysterectomy Current Visit: Yes Status: Acute (2) S/P bilateral salpingo-oophorectomy Current Visit: Yes Status: Acute (3) LISA III (cervical intraepithelial neoplasia grade III) with severe dysplasia Current Visit: No Status: Chronic (4) Hypertension Current Visit: No Status: Chronic Qualifiers: Hypertension type: essential hypertension Qualified Code(s): I10 - Essential (primary) hypertension (5) Diabetes Current Visit: No Status: Chronic (6) Hypothyroidism Current Visit: No Status: Chronic (7) Hyperlipidemia Current Visit: No Status: Chronic Subjective Date of service: 07/29/19 Patient Reports: Positive: voiding w/o difficulty, afebrile (slight dizziness with ambulation), other Objective Vital Signs - 12hr 07/28/19 07/28/19 07/28/19 21:58 22:00 23:30 Temperature 98.5 F Pulse Rate 63 Respiratory 18 16 Rate Blood Pressure 100/46 O2 Sat by Pulse 98 98 Oximetry 07/29/19 07/29/19 07/29/19 00:51 04:00 04:24 Temperature 98.4 F Pulse Rate 55 L 55 L Respiratory 18 18 Rate Blood Pressure 107/54 O2 Sat by Pulse 97 Oximetry 07/29/19 05:59 Temperature Pulse Rate Respiratory 18 Rate Blood Pressure O2 Sat by Pulse Oximetry - General physical appearance well developed, well nourished, no distress (sitting up in bed) - Respiratory normal expansion, normal respiratory effort, clear to auscultation - Abdomen soft, bowel sounds normal - Integumentary other (incisions c/d/i) - Neurologic normal coordination - Psychiatric oriented to time, oriented to person, oriented to place, speech is normal, memory intact - Labs 07/29/19 06:34 07/25/19 09:30
[2019-07-29] MEDS: atenoloL 25 MG TAB PO SCH ×2 (09:20→22:10)
[2019-07-29] MEDS: hydroCHLOROthiazide 25 MG TAB PO SCH (09:20)
[2019-07-29] MEDS: LOSARTAN 50 MG TAB PO SCH (09:21)
[2019-07-29] MEDS ORDERED: IBUPROFEN 800 MG TAB PO PRN (09:21)
[2019-07-29] MEDS ORDERED: hydroCHLOROthiazide 25 MG TAB PO SCH (14:00)
[2019-07-29] MEDS ORDERED: LOSARTAN 50 MG TAB PO SCH (14:00)
[2019-07-29] MEDS ORDERED: ACETAMINOPHEN 325 MG TAB ONE (16:31)
[2019-07-29] MEDS: SIMETHICONE 80 MG CHEW TAB PO PRN ×2 (16:37→22:11)
[2019-07-29 19:01] LABS: Hematocrit 32.4 % (30.3-42.9); Hemoglobin 10.7 gm/dl (10.1-14.3)
[2019-07-29] MEDS ORDERED: ACETAMINOPHEN 325 MG TAB PO PRN (19:28)
--- NOTE | 2019-07-29 19:35 | Progress Note ---
Assessment and Plan Will continue Mylicon and observe closely No obvious evidence of active bleeding Ate half hamburger without n/v doubt ileus/SBO at this time Discussed pain management, states gabapentin makes her dizzy and she is unable to take Percocet or [place] d/t codeine allergy, desires Ibuprofen and tylenol prn Will observe overnight and reassess in am for d/c jessica Patient voiced understanding and agrees with POC - Patient Problems (1) History of robot-assisted laparoscopic hysterectomy Current Visit: Yes Status: Acute (2) S/P bilateral salpingo-oophorectomy Current Visit: Yes Status: Acute (3) LISA III (cervical intraepithelial neoplasia grade III) with severe dysplasia Current Visit: No Status: Chronic (4) Hypertension Current Visit: No Status: Chronic Qualifiers: Hypertension type: essential hypertension Qualified Code(s): I10 - Essential (primary) hypertension (5) Diabetes Current Visit: No Status: Chronic (6) Hypothyroidism Current Visit: No Status: Chronic (7) Hyperlipidemia Current Visit: No Status: Chronic Subjective Date of service: 07/29/19 Patient Reports: Positive: no flatus, afebrile, other (Ambulating in jacob well and urinating appropriately w/o difficulty). Negative: nausea (Still with gas pain and slight dizziness with ambulation), vomiting Objective Vital Signs - 12hr 07/29/19 07/29/19 07/29/19 07:49 08:00 09:20 Temperature 97.4 F L Pulse Rate 54 L Respiratory 20 20 Rate Blood Pressure 109/50 110/50 O2 Sat by Pulse Oximetry 07/29/19 07/29/19 07/29/19 09:49 12:00 12:28 Temperature 98.2 F Pulse Rate 60 58 L Respiratory 20 18 Rate Blood Pressure 91/67 O2 Sat by Pulse 100 Oximetry 07/29/19 07/29/19 07/29/19 14:13 15:03 16:37 Temperature 98.2 F Pulse Rate 58 L 63 Respiratory 18 20 Rate Blood Pressure 116/52 99/57 O2 Sat by Pulse 97 Oximetry 07/29/19 07/29/19 07/29/19 16:38 16:39 17:37 Temperature Pulse Rate 54 L Respiratory 20 20 Rate Blood Pressure 116/50 O2 Sat by Pulse Oximetry 07/29/19 19:15 Temperature Pulse Rate Respiratory 20 Rate Blood Pressure O2 Sat by Pulse Oximetry - Abdomen soft, bowel sounds normal, surgical scars - Labs 07/29/19 18:32 07/25/19 09:30
[2019-07-30] MEDS: hydrALAZINE 25 MG TAB PO SCH ×2 (00:13→09:03)
[2019-07-30] MEDS: INSULIN REGULAR, HUMAN 100 UNITS/1 ML SUB-Q SCH ×3 (00:14→12:07)
[2019-07-30] MEDS: LEVOTHYROXINE 150 MCG TAB PO SCH (05:49)
[2019-07-30] MEDS: SIMETHICONE 80 MG CHEW TAB PO PRN (05:51)
[2019-07-30] MEDS: FAMOTIDINE 20 MG/2 ML INJ IV SCH (09:03)
[2019-07-30] MEDS: atenoloL 25 MG TAB PO SCH (09:03)
[2019-07-30 10:16] VITALS: BP 130/65
--- NOTE | 2019-07-30 12:00 | Discharge Summary ---
Providers - Providers Date of Admission: 07/28/19 09:40 Date of discharge: 07/30/19 Attending physician: PAPA HSIEH Primary care physician: DANIEL CORDERO Hospitalization Condition: Good Procedures: RALTH/BSO Hospital course: Post op course was significant for moderate pain control d/t slow return of bowel function and slight dizziness with ambulation. Symptoms resolved on POD#2 with BM and hydration. Patient now without complaints and desires d/c home. Due codeine allergy she declines oxycodone and hydrocodone at this time. Agrees to Toradol po then ibuprofen. May take Tylenol as needed. Disposition: DC-01 TO HOME OR SELFCARE - Discharge Diagnoses (1) History of robot-assisted laparoscopic hysterectomy Status: Acute (2) S/P bilateral salpingo-oophorectomy Status: Acute (3) LISA III (cervical intraepithelial neoplasia grade III) with severe dysplasia Status: Chronic (4) Hypertension Status: Chronic Qualifiers: Hypertension type: essential hypertension Qualified Code(s): I10 - Essential (primary) hypertension (5) Diabetes Status: Chronic (6) Hypothyroidism Status: Chronic (7) Hyperlipidemia Status: Chronic Core Measure Documentation - Palliative Care Palliative Care/ Comfort Measures: Not Applicable - Core Measures Any of the following diagnoses?: none Exam - Constitutional Vitals: Temp Pulse Resp BP Pulse Ox 98.0 F 48 L 18 130/65 99 07/30/19 08:32 07/30/19 08:32 07/30/19 08:32 07/30/19 08:32 07/30/19 09:44 General appearance: Present: no acute distress - Respiratory Respiratory effort: normal Respiratory: bilateral: CTA - Cardiovascular Rhythm: regular - Extremities Extremities: no ischemia, No edema - Abdominal General gastrointestinal: Present: soft, non-distended, normal bowel sounds - Integumentary Integumentary: Present: clear, warm, dry (Incisions c/d/i) - Psychiatric Psychiatric: appropriate mood/affect, intact judgment & insight, memory intact - Neurologic Neurologic: CNII-XII intact Plan Activity: other (No sex, no driving. Ambulate on your property ~1mile a day. Use your incentive spirometer and void every hour while awake. ) Diet: low fat, low cholesterol, low salt, diabetic (Eat small meals frequently. Avoid spicy, high salt and fatty foods. ) Wound: open to air, keep clean and dry Special Instructions: no heavy lifting (Greater than 25lbs) Additional Instructions: Contact your primary care provider to discuss medications and blood sugar monitoring. Complete Toradol before starting Ibuprofen. Follow up with: PAPA HSIEH MD [Staff Physician] - 08/03/19 10:15 am ([place] ) DANIEL CORDERO MD [Primary Care Provider] - 3 Days Prescriptions: RX: Ibuprofen [Motrin 800 MG tab] 800 mg PO Q8H PRN #60 tablet PRN Reason: Pain, Mild (1-3)
[2019-07-30] MEDS ORDERED: FAMOTIDINE 20 MG TAB PO SCH (22:00)
== END 2019-07-30 14:19 | disposition home or self-care (01) | DRG 741 ==
LOC: OR 08:00 → OBSVTOIN 09:40 → 4A 09:40
PROVIDERS: ADMIT Obstetrics & Gynecology; ATTEND Obstetrics & Gynecology
PROC: 0UT94ZZ Resection of Uterus, Percutaneous Endoscopic Approach (ICD-10-PCS; principal; 2019-07-28)
PROC: 0UT74ZZ Resection of Bilateral Fallopian Tubes, Percutaneous Endoscopic Approach (ICD-10-PCS; 2019-07-28)
PROC: 8E0W4CZ Robotic Assisted Procedure of Trunk Region, Percutaneous Endoscopic Approach (ICD-10-PCS; 2019-07-28)
PROC: 3E0234Z Introduction of Serum, Toxoid and Vaccine into Muscle, Percutaneous Approach (ICD-10-PCS; 2019-07-28)
DX: D06.9 Carcinoma in situ of cervix, unspecified (principal); E11.9 Type 2 diabetes mellitus without complications; E78.5 Hyperlipidemia, unspecified; E03.9 Hypothyroidism, unspecified; I10 Essential (primary) hypertension; G47.30 Sleep apnea, unspecified; K21.9 Gastro-esophageal reflux disease without esophagitis; Z90.710 Acquired absence of both cervix and uterus; Z90.722 Acquired absence of ovaries, bilateral; Z88.5 Allergy status to narcotic agent; Z79.82 Long term (current) use of aspirin; Z79.899 Other long term (current) drug therapy; Z85.038 Personal history of other malignant neoplasm of large intestine; Z85.3 Personal history of malignant neoplasm of breast; Z85.118 Personal history of other malignant neoplasm of bronchus and lung; Z23 Encounter for immunization
CPT/HCPCS: 36415; 64450; 80048; 82962; 85014; 85018; 85025; 86850; 86900; 86901; 88305; 88307; 90732; G0378; A4217; J0690; J1100; J1170; J1885; J2250; J2270; J2370; J2405; J2704; J2710; J3010; J7030; J7120; U0003

== ENCOUNTER 2020-02-01 10:15 | Outpatient (CLI) | payer MEDICARE ==
--- NOTE | 2020-02-01 12:54 | Mammography Report ---
BONE DEXA CLINICAL: Postmenopausal screening TECHNIQUE: 2 site bone DEXA performed on an Hologic scanner. FINDINGS: The average BMD of the lumbar spine L1-L4 is 1.142 g/cm squared with a T score of 0.9 and a Z score o f 2. The average total BMD of the left hip is 0.964 g/cm squared with a T score of -0.2and a Z score of -0 .6. IMPRESSION: 1. WHO classification: Normal RECOMMENDATION: Clinical correlation and routine screening. Definitions: BMD equal bone mineral density T score = BMD related to peak bone mass of young adult ([place] expressed an standard deviation) Z score = age-matched BMD expressed in SD World health organization (WHO) diagnostic criteria Normal T score greater than equal to 1 standard deviation Osteopenia T score between -1 and -2.4 standard deviation Osteoporosis T score -2.5 standard deviation or below. Note: BMD is not the only risk factor for fracture; also consider factors such as the patient's age, risk of falling, previous osteoporotic fracture, family history of osteoporotic fractures, current sm oker and low body weight. Z scores are not calculated if greater than 80 years of age. Signer Name: Calin Alvarado MD Signed: 02/01/2020 12:54 PM Workstation Name: [id number]
--- NOTE | 2020-02-01 14:06 | Mammography Report ---
BILATERAL DIGITAL SCREENING MAMMOGRAM WITH CAD HISTORY: Screening mammogram. TECHNIQUE: Routine digital mammographic imaging performed. This examination was interpreted with cheryl lama benefit of Computer-aided Detection analysis. COMPARISON: 01/28/2019, 01/22/2018, 01/02/2017, 01/02/2016, 11/29/2013, 10/21/2012. FINDINGS: Breast Density: scattered fibroglandular appearance of the breast tissue. Digital CC and MLO views demonstrate no mammographic evidence of malignancy. Stable right superior b reast focal asymmetry. Long-term stability would support a benign etiology. IMPRESSION: No mammographic evidence of malignancy. If the clinical examination remains stable, recommend bilate ral mammogram in approximately one year. BIRADS 2: Benign Finding(s). FURTHER INFORMATION: According to the [employer], yearly mammograms are recommend ed starting at age 40 and continuing as long as a woman is in good health. Clinical Breast Exams shou ld be part of a periodic health exam-about every 3 years for women in their 20s and 30s and every yea r for women 40 and over. Breast self exam is an option for women starting in their 20s. Any breast ch amos noted on a breast self exam should be reported promptly to the patient's healthcare provider. Br east MRI is recommended for women with an approximately 20-25% or greater lifetime risk of breast can cer, including women with a strong family history of breast or ovarian cancer and women who have been treated for Hodgkin's disease. A negative Mammography report should not discourage follow up or biopsy of a clinically significant f inding and/or abnormality. Dense breast tissue may obscure small neoplasms. The patient will be entered into a reminder system with a target due date for the next screening mamm ogram. Signer Name: Calin Alvarado MD Signed: 02/01/2020 2:05 PM Workstation Name: [id number]
== END 2020-02-01 10:16 | disposition home or self-care (01) ==
LOC: MAMMO 10:15
PROVIDERS: ATTEND Obstetrics & Gynecology
DX: Z12.31 Encounter for screening mammogram for malignant neoplasm of breast (principal); N64.89 Other specified disorders of breast; N95.1 Menopausal and female climacteric states; Z13.820 Encounter for screening for osteoporosis; Z78.0 Asymptomatic menopausal state
CPT/HCPCS: 77067; 77080

== ENCOUNTER 2021-02-04 09:37 | Outpatient (CLI) | payer MEDICARE ==
--- NOTE | 2021-02-04 11:40 | Mammography Report ---
BILATERAL DIGITAL DIAGNOSTIC MAMMOGRAM WITH CAD CONVENTIONAL, 02/04/2021 RIGHT LIMITED BREAST ULTRASOUND CLINICAL INFORMATION / INDICATION: Patient presents for evaluation of an area of palpable concern in the lateral right axilla. TECHNIQUE: Digital bilateral mammographic imaging was performed. Spot compression views were obtained . Limited ultrasound was performed. This examination was interpreted with the benefit of Computer-Aid ed Detection (CAD) analysis. COMPARISON: Prior mammograms 02/01/2020 and 01/28/2019 FINDINGS: Breast Density: There are scattered areas of fibroglandular density. MAMMOGRAPHIC FINDINGS: A focal asymmetric density in the 11:00 position of the right breast appeared slightly more prominent compared with prior examinations on standard views; however, this area is muc h less conspicuous on spot compression views and most likely reflects overlapping fibroglandular tiss ue. Otherwise, no dominant mass, suspicious calcifications, or architectural distortion in either noe ast. The area of palpable concern in the lateral right axilla is not included within the [id number] of mammogram. ULTRASOUND FINDINGS: Targeted ultrasound evaluation was performed of the area of interest. Targeted ultrasound of the area of palpable concern in the lateral right axilla reveals an oval circumscribed isoechoic mass measuring up to 2.2 x 0.8 x 2.8 cm. The mass is parallel. No internal vascularity is demonstrated. Targeted ultrasound of the upper outer quadrant of the right breast is unremarkable. Th ere is no sonographic correlate for the focal asymmetric density seen mammographically, confirming th at this represents overlapping fibroglandular tissue. IMPRESSION: 1. An oval circumscribed isoechoic mass is seen at the site of palpable concern in the lateral right axilla. This may reflect a benign lipoma, though clinical correlation is recommended. A targeted ultr asound can be performed in 6 months to ensure stability. Follow up recommendation: Short term follow up in 6 months. BI-RADS Category 3: Probably Benign. Followup in 6 months. A "normal" or negative report should not discourage follow up or biopsy of a clinically significant f inding. A written summary of these findings will be mailed to the patient. The patient will be entered into a mammography reporting system which will generate a reminder letter for the patient's next appointmen t at the appropriate interval. According to the [employer], yearly mammograms are recommended starting at age 40 and continuing as long as a woman is in good health. Breast MRI is recommended for women with an arin roximately 20-25% or greater lifetime risk of breast cancer, including women with a strong family his tory of breast or ovarian cancer and women who have been treated for Hodgkin's disease. Signer Name: Magdalena Dominguez MD Signed: 02/04/2021 11:36 AM Workstation Name: [id number]
== END 2021-02-04 09:38 | disposition home or self-care (01) ==
LOC: MAMMO 09:37
PROVIDERS: ATTEND Obstetrics & Gynecology
DX: N63.0 Unspecified lump in unspecified breast (principal); R92.8 Other abnormal and inconclusive findings on diagnostic imaging of breast
CPT/HCPCS: 77066

== ENCOUNTER 2021-08-16 10:23 | Outpatient (CLI) | payer MEDICARE ==
--- NOTE | 2021-08-16 11:40 | Ultrasound Report ---
ULTRASOUND BREAST RIGHT LIMITED, 08/16/2021 CLINICAL INFORMATION / INDICATION: Patient has been evaluated previously for a palpable area in the r ight axilla/breast. This is a short-term follow-up exam for highly likely benign abnormality identifi ed on prior right breast ultrasound 02/04/2021. Patient states she can no longer palpate any abnormal ity in the right axilla. TECHNIQUE: Targeted ultrasound evaluation was performed of the area of interest. COMPARISON: Prior right mammogram and ultrasound 02/04/2021 FINDINGS: Sonographic evaluation of the right axilla is unremarkable. No mass, cyst, or suspicious shadowing is noted. Previously noted isoechoic oval mass cannot be reproduced on today's study. Additionally, pat ient can no longer palpate the abnormality. IMPRESSION: No sonographic evidence of malignancy. Follow up recommendation: Back to schedule. BI-RADS Category 1: NEGATIVE. A normal or "negative" report should not preclude biopsy or follow-up of a clinically suspicious find ing. Signer Name: Trudi Robert MD Signed: 08/16/2021 11:35 AM Workstation Name: [id number]
== END 2021-08-16 10:24 | disposition home or self-care (01) ==
LOC: MAMMO 10:23
PROVIDERS: ATTEND Obstetrics & Gynecology
DX: R92.8 Other abnormal and inconclusive findings on diagnostic imaging of breast (principal); Z80.3 Family history of malignant neoplasm of breast